=== PATIENT | female | born 1990 | race Caucasian/White ===

== ENCOUNTER 2016-12-10 10:30 | Inpatient (IN) | payer OTHER ==
[2016-12-10] MEDS ORDERED: CARBOPROST TROMETHAMINE 250 MCG/ML 1 ML AMP IM PRN (10:38)
[2016-12-10] MEDS ORDERED: TERBUTALINE 1 MG/ML VIAL SQ PRN (10:38)
[2016-12-10] MEDS ORDERED: LIDOCAINE 1% (PF) 10 MG/ML (30 ML SDV) SQ PRN (10:38)
[2016-12-10] MEDS ORDERED: METHYLERGONOVINE 0.2 MG/ML 1 ML AMP IM PRN (10:38)
[2016-12-10] MEDS ORDERED: OXYTOCIN 10 UNIT/ML 1 ML VIAL IM PRN (10:38)
[2016-12-10] MEDS ORDERED: OXYTOCIN 30 UNITS/500 ML NS 30 UNIT in SALINE 1 500ML.BAG IV SCH (10:45)
[2016-12-10 11:05] VITALS: BMI 49.5
[2016-12-10] MEDS: LACTATED RINGERS 1,000 ML IV SCH ×2 (11:11→18:10)
--- NOTE | 2016-12-10 11:36 | P.HPOB ---
History of Present Illness H&P Date: 12/10/16 Chief Complaint: Hypertension in This is a 26-year-old female 1 para 0 with an estimated date of confinement of 12/30/2016, estimated gestational age of 37 and one sevenths weeks, who presented to labor and delivery after being seen in the office today for routine visit. Her blood pressure in the office was 140/98. Her blood pressures have been elevated since approximately 35 weeks and she was placed on modified bed rest at that time. She has been getting twice weekly NSTs and her blood pressures have been in the 140s over 90s range. She denies any headaches or blurry vision. She has been experiencing some swelling in her lower extremities. Urine protein has been negative up until today. Today she showed trace protein in the urinalysis in the office. Since she is now beyond 37 weeks, the decision is made to proceed with delivery due to gestational hypertension over 37 weeks per ACOG guidelines. Labs will be drawn to rule out preeclampsia. She has had some isolated elevated blood pressures earlier on in the around 17 weeks that did resolve and she had been checking blood pressures at home regularly with normal findings. labs: GC/Chlamydia-negative Toxoplasma screen-within normal limits Syphilis antibody-negative nonreactive HIV-nonreactive Random glucose-91 Hepatitis B surface antigen-negative Hemoglobin-13.1 Rubella-immune Blood type-O+ Antibody screen-negative One hour Glucola-156 Three-hour Glucola-within normal limits Group B streptococcus-negative Obstetrical history: First Gynecologic history: No history of sexual transmitted diseases Social history: She is single. Boyfriend is involved. Review of Systems Eyes: denies blurred vision Gastrointestinal: Denies abdominal pain Genitourinary: Reports pelvic pain, Reports Musculoskeletal: bilateral: foot swelling Neurological: Denies headaches Past Medical History Additional Past Medical History / Comment(s): states had echo in september and has "a leaking heart valve" History of Any Multi-Drug Resistant Organisms: None Reported Past Surgical History: Adenoidectomy, Tonsillectomy Past Anesthesia/Blood Transfusion Reactions: No Reported Reaction Past Psychological History: Anxiety, Depression Smoking Status: Former smoker Past Drug Use History: None Reported - Past Family History Mother Family Medical History: Diabetes Mellitus, Hypertension Medications and Allergies Allergies Allergy/AdvReac Type Severity Reaction Status Date / Time Penicillins AdvReac Rash/Hives Verified 12/10/16 10:37 Exam Osteopathic Statement: *. No significant issues noted on an osteopathic structural exam other than those noted in the History and Physical/Consult. - Vital Signs Vital signs: Vital Signs Temp Pulse Resp BP 12/10/16 10:36 98 F 115 H 18 146/94 Intake and Output 12/09/16 12/10/16 12/10/16 22:59 06:59 14:59 Other: Weight 122.924 kg Patient Weight 12/11/16 06:59 Weight 122.924 kg HEENT: Within normal limits Heart: Regular rate and rhythm Lungs: Clear to auscultation bilaterally Abdomen: with fundal height of 38-1/2 cm heart tones: Reactive Contractions: Irregular, irritability pattern Extremities: Trace edema. Deep tendon reflexes 2 over 4 bilaterally. Assessment and Plan (1) Gestational hypertension affecting first Status: Acute (2) 37 weeks gestation of Status: Acute Plan: Plan is to proceed with oxytocin induction of labor and expectant management. Will monitor blood pressures closely. Will obtain preeclampsia labs.
[2016-12-10 11:45] LABS: Basophils # (A) 0.1 k/uL (0-0.2); Basophils % (A) 0 %; CH 29.3; CHCM 32.9; Eosinophils # (A) 0.1 k/uL (0-0.7); Eosinophils % (A) 1 %; HDW 2.78; HGB 12.2 gm/dL (11.4-16.0); Luc # (Auto) 0.29; Luc % (Auto) 2; Lymphocytes % (A) 13 %; MCH 28.8 pg (25.0-35.0); MCHC 32.2 g/dL (31.0-37.0); MCV 89.5 fL (80.0-100.0); Mean Platelet Volume 7.3; Monocytes # (A) 0.8 k/uL (0-1.0); Monocytes % (A) 5 %; Neutrophils # (A) 11.7 k/uL (1.3-7.7); Neutrophils % (A) 78 %; RBC 4.24 m/uL (3.80-5.40); RDW 15.4 % (11.5-15.5); WBC 14.9 k/uL (3.8-10.6)
[2016-12-10 12:00] LABS: ALT 30 U/L (9-52); AST 16 U/L (14-36); Blood Urea Nitrogen 8 mg/dL (7-17); LDH 400 U/L (313-618); Non-African American GFR(MDRD) >60 (>60 ml/min/1.73 sqM); Uric Acid 5.6 mg/dL (3.7-7.4)
[2016-12-10 12:27] LABS: INR 0.9 (<1.1); Partial Thromboplastin Time 22.9 sec (22.0-30.0); Prothrombin Time 9.5 sec (9.0-12.0)
[2016-12-11] MEDS: LACTATED RINGERS 1,000 ML IV SCH (01:39)
[2016-12-11] MEDS ORDERED: WITCH HAZEL 1 EACH MED..PAD TOPICAL PRN (03:22)
[2016-12-11] MEDS ORDERED: Acetaminophen-Codeine 300-30mg TAB PO PRN ×2 (03:22)
[2016-12-11] MEDS ORDERED: HYDROCORTISONE 2.5% RECTAL CREAM 30 GM TUBE RECTAL PRN (03:22)
[2016-12-11] MEDS ORDERED: SIMETHICONE 80 MG CHEWABLE PO PRN (03:22)
[2016-12-11] MEDS ORDERED: ACETAMINOPHEN TAB 325 MG TAB PO PRN (03:22)
[2016-12-11] MEDS ORDERED: BENZOCAINE/MENTHOL SPRAY 1 GM/SPRAY AEROSOL TOPICAL PRN (03:22)
[2016-12-11] MEDS ORDERED: diphenhydrAMINE 50 MG/ML 1 ML VIAL IVP PRN ×2 (03:22)
[2016-12-11] MEDS ORDERED: diphenhydrAMINE 25 MG CAP PO PRN (03:22)
[2016-12-11] MEDS ORDERED: diphenhydrAMINE 50 MG CAP PO PRN (03:22)
[2016-12-11] MEDS ORDERED: LANOLIN CREAM 5 GM TUBE TOPICAL PRN (03:22)
[2016-12-11] MEDS ORDERED: ZOLPIDEM 5 MG TAB PO PRN (03:22)
--- NOTE | 2016-12-11 03:26 | P.PROBDLV ---
Vaginal Delivery Note - . Vaginal Delivery Note: 26-year-old presents at 37 weeks and 1 day to the office with elevated blood pressures. She was sent over to the delivery for induction of labor due to gestational hypertension. Her cervix was 3 cm dilated, 70% effaced, and -3 station. She is not rafa. heart tones 135-140 with moderate variability and reactive. Amniotomy was performed 11:22 AM, clear fluid noted. Pitocin was also started. She progressed slowly throughout the day and night. Her cervix was completely dilated at 2:56 AM on 12/11/2016. She pushed , and delivered a viable male infant over intact perineum at 3:04 AM. Head delivered OA, nuchal cord 1 easily reduced, anterior shoulder delivered gentle downward traction followed by posterior shoulder and rest of body. Nose mouth bulb suctioned, cord clamped and cut, infant placed mother's abdomen. Apgars 8 , 9, weight 7 lbs. 4 oz. Placenta delivered spontaneously, intact with three- vessel cord at 3:08 AM. Vagina, cervix, and perineum were inspected. First- degree midline laceration was repaired with 3-0 Vicryl. Estimated blood loss 200 mL. Mother and baby in stable condition.
[2016-12-11] MEDS ORDERED: OXYTOCIN 30 UNITS/500 ML NS 30 UNIT in SALINE 1 500ML.BAG IV SCH (03:30)
[2016-12-11] MEDS: IBUPROFEN 600 MG TAB PO PRN ×2 (04:05→10:07)
[2016-12-11] MEDS ORDERED: SENNOSIDES-DOCUSATE SODIUM 1 EACH TAB PO SCH (08:00)
[2016-12-11 09:48] VITALS: RESP 19
--- NOTE | 2016-12-11 10:22 | P.DS ---
Providers Date of admission: 12/10/16 10:30 Expected date of discharge: 12/11/16 Attending physician: Caitie Villalba - Discharge Diagnosis(es) (1) Gestational hypertension affecting first Current Visit: Yes Status: Acute (2) 37 weeks gestation of Current Visit: Yes Status: Acute Hospital Course: This is a 26-year-old female 1 para 0 at 37 and one sevenths weeks who presented to the hospital with elevated blood pressures in the office. Per ACOG guidelines, she was sent to the hospital for delivery since she was beyond 37 weeks with persistent elevated blood pressures. She was given oxytocin induction of labor and artificial rupture membranes with clear fluid noted and did deliver vaginally a viable male infant on 12/11/2016 with scores of 8 at 1 minute and 9 at 5 minutes and infant weight of 7 lbs. 4 oz. with nuchal cord 1. She has done well . She still is running blood pressures in the 130s to 140s over 90s. Pain is well-controlled with ibuprofen. Lochia is decreasing. Baby however did go to special care nursery and is having some respiratory distress. The baby will need to be transported [facility] and therefore the patient is requesting discharge at this time. She does have a blood pressure cuff at home and will continue to check her blood pressures 2-3 times a day. She is advised to call the office if her blood pressures are elevated above 160/100-110. She will follow up in the office in approximately 1 week for a postop check. She will be given a prescription for ibuprofen 600 mg every 6 hours as needed for pain. She will also be given a prescription for a breast pump. She is advised to call the office if she has any further questions or concerns or needs any other prescriptions prior to her appointment time. Routine instructions are given. Procedures: Oxytocin induction of labor Spontaneous vaginal delivery of a viable male on 12/11/2016 Patient Condition at Discharge: Stable Plan - Discharge Summary New Discharge Prescriptions: Ibuprofen [Motrin] 600 mg PO Q6HR PRN #60 tab PRN Reason: Mild Pain Or Fever >= 100.5 Discharge Medication List Ibuprofen [Motrin] 600 mg PO Q6HR PRN #60 tab 12/11/16 [Rx] Follow up Appointment(s)/Referral(s): Caitie Villalba DO [Doctor of Osteopathic Medicine] - 1 Week Activity/Diet/Wound Care/Special Instructions: Instructions 1. Do not begin any exercise program for 3 weeks. 2. Do not resume sexual relations for 3 weeks or longer if uncomfortable. 3. You may take tub baths or showers at any time. 4. You may use tampons if desired after 3 weeks. 5. Keep the area of episiotomy (stitches) clean and dry. 6. If you are not nursing, wear a good fitting, supportive bra during the day and limit fluid intake for at least 1 week to prevent breast engorgement. 7. Call the office, [phone], within the next week to make appointment for your 6 week checkup if it has not already been made. 8. Report any of the following occurrences to the doctor promptly: a. Heavy, excessive bleeding b. Chills, fever c. Burning or frequency of urination d. Pain or redness and breasts if nursing e. Increasing pain or swelling in episiotomy (stitches). In addition to the above instructions, the following additional should be followed: 1. No heavy lifting or straining (exercising) until after 6 week checkup. 2. Keep abdominal incision clean and dry: You may wear a dressing if more comfortable. 3. Make office appointment for 10 days after going home or as instructed by her doctor. Discharge Disposition: HOME SELF-CARE
[2016-12-11 13:03] VITALS: PULSE 103; TEMP 98.5
[2016-12-11 13:45] VITALS: BP 145/93
== END 2016-12-11 13:10 | disposition home or self-care (01) | DRG 775 ==
LOC: 4FBP 10:30
PROVIDERS: ADMIT Obstetrics & Gynecology; ATTEND Obstetrics & Gynecology
PROC: 10E0XZZ Delivery of Products of Conception, External Approach (ICD-10-PCS; principal; 2016-12-11)
PROC: 10907ZC Drainage of Amniotic Fluid, Therapeutic from Products of Conception, Via Natural or Artificial Opening (ICD-10-PCS; 2016-12-11)
PROC: 0HQ9XZZ Repair Perineum Skin, External Approach (ICD-10-PCS; 2016-12-11)
PROC: 3E033VJ Introduction of Other Hormone into Peripheral Vein, Percutaneous Approach (ICD-10-PCS; 2016-12-11)
DX: O13.4 Gestational [pregnancy-induced] hypertension without significant proteinuria, complicating childbirth (principal); O99.344 Other mental disorders complicating childbirth; F32.9 Major depressive disorder, single episode, unspecified; F41.9 Anxiety disorder, unspecified; O69.81X0 Labor and delivery complicated by cord around neck, without compression, not applicable or unspecified; O70.0 First degree perineal laceration during delivery; Z3A.37 37 weeks gestation of pregnancy; Z37.0 Single live birth; Z87.891 Personal history of nicotine dependence; Z83.3 Family history of diabetes mellitus; Z82.49 Family history of ischemic heart disease and other diseases of the circulatory system; Z88.0 Allergy status to penicillin; Z86.79 Personal history of other diseases of the circulatory system
CPT/HCPCS: 82565; 83615; 84450; 84460; 84520; 84550; 85025; 85610; 85730; 88307

== ENCOUNTER → 2017-09-20 | Outpatient (CLI) | payer OTHER ==
--- NOTE | 2017-09-20 23:17 | MR ---
EXAMINATION TYPE: MR brain and iac wo/w con DATE OF EXAM: 09/20/2017 COMPARISON: NONE HISTORY: Dizziness and Giddiness per order. TECHNIQUE: Multiplanar, multisequence images of the brain and brainstem including internal auditory canal are al l performed without and with IV contrast, utilizing 13.5 mL intravenous Gadavist . FINDINGS: Diffusion weighted images demonstrate no evidence of a recent infarct or other diffusion ab normality. There is no extra-axial fluid collection or significant white matter signal abnormality. The ventricular system and cisternal spaces are normal in size and appearance. The brain volume is age appropriate. Midline structures demonstrate slightly low-lying cerebellar tonsils. No greater than 5 mm inferior descent is present. The craniocervical junction appears within normal limits. Post contrast images d emonstrate no abnormal enhancement. The dural venous sinuses appear patent. There is 2.0 cm polyp in the anterior inferior aspect of left maxillary sinus otherwise paranasal sinuses are clear. The globe s are intact bilaterally. No suspicious fluid signal is seen in mastoid air cells bilaterally. The vestibulocochlear complexes are symmetric and unremarkable. No suspicious enhancing cerebellopontine angle mass is identified bi laterally. IMPRESSION: No significant finding is seen to account for patient's symptoms.
== END | disposition home or self-care (01) ==
LOC: RADMRIMAIN 20:42
PROVIDERS: ATTEND Otolaryngology Otolaryngic Allergy
DX: R42 Dizziness and giddiness (principal)
CPT/HCPCS: 70553; A9581

== ENCOUNTER 2018-05-14 20:03 | Emergency (ER) | payer OTHER ==
[2018-05-14 20:32] VITALS: RESP 16; TEMP 98.5
--- NOTE | 2018-05-14 20:58 | ED ---
General Adult HPI - General Chief complaint: Extremity Injury, Lower Stated complaint: Knee pain Time Seen by Provider: 05/14/18 20:38 Source: patient, RN notes reviewed Mode of arrival: ambulatory Limitations: no limitations - History of Present Illness Initial comments: Patient 27-year-old female presented to the emergency room today with a chief complaint of pain to the right knee. She does admit that she's follow-up the family doctor had x-rays obtained was told that it could be a ligament problem. She states she has been using a knee brace but knee has been giving out on her. Patient states she's been working the last few days believes that this may have caused increased problems. There is no specific injury or trauma. States her 's more swelling. Patient states been using ibuprofen 800 mg. 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 She'll be able to do so due to pain. Does plan to follow-up with orthopedics. Patient denies any recent fever, chills, shortness of breath, chest pain, back pain, abdominal pain, nausea or vomiting, numbness or tingling, headaches or visual changes, or any other complaints. - Related Data Previous Rx's Medication Instructions Recorded Ibuprofen [Motrin] 600 mg PO Q6HR PRN #60 tab 12/11/16 Allergies Allergy/AdvReac Type Severity Reaction Status Date / Time Penicillins AdvReac Rash/Hives Verified 05/14/18 20:32 Review of Systems ROS Statement: Those systems with pertinent positive or pertinent negative responses have been documented in the HPI. ROS Other: All systems not noted in ROS Statement are negative. Past Medical History Additional Past Medical History / Comment(s): states had echo in september and has "a leaking heart valve" History of Any Multi-Drug Resistant Organisms: None Reported Past Surgical History: Adenoidectomy, Tonsillectomy Past Anesthesia/Blood Transfusion Reactions: No Reported Reaction Past Psychological History: Anxiety, Depression Smoking Status: Former smoker Past Drug Use History: None Reported - Past Family History Mother Family Medical History: Diabetes Mellitus, Hypertension General Exam - General Exam Comments Initial Comments: General: The patient is awake and alert, in no distress, and does not appear acutely ill. Neck: The neck is supple, there is no tenderness or JVD. Cardiovascular: There is a regular rate and rhythm. No murmur, rub or gallop is appreciated. Respiratory: Lungs are clear to auscultation, respirations are non-labored, breath sounds are equal. No wheezes, stridor, rales, or rhonchi. Musculoskeletal: Normal appearance the right knee no obvious deformity. Shows good range of motion with both flexion and extension. Sensations intact. Pedal pulse 2+. Strength is 5/5. Negative valgus varus stress. No bony tenderness on exam. Negative Neville's. Neurological: A&O x 3. CN II-XII intact, There are no obvious motor or sensory deficits. Coordination appears grossly intact. Speech is normal. Skin: Skin is warm and dry and no rashes or lesions are noted. Psychiatric: Normal mood and affect. Limitations: no limitations Course Vital Signs 05/14/18 20:30 Temperature 98.5 F Pulse Rate 93 Respiratory 16 Rate Blood Pressure 163/120 O2 Sat by Pulse 100 Oximetry Medical Decision Making - Medical Decision Making Patient's had x-rays within the last week and a half. There is no new injury or trauma. She states that gave out on her occasionally and she feels that there is been more swollen after working all day yesterday. Did offer options of x-rays that she's had these recently. At this time declined any repeat x- rays. Advised to follow-up with orthopedics. We'll refer to or so on-call. She does have a knee brace at home that she's been using. She has been taking anti-inflammatories. Patient given a work no further work and advised follow- up with orthopedics Disposition Clinical Impression: Knee pain Disposition: HOME SELF-CARE Condition: Good Instructions: Knee Pain (ED) Additional Instructions: Please follow-up with orthopedics as discussed. Please use knee brace when up and moving around. Please continue to ice elevate the affected area. Please continue prescription prescribed anti-inflammatories for pain. Please return to emergency room for any other concerns. Is patient prescribed a controlled substance at d/c from ED?: No Referrals: Davon Garcia III, MD [Primary Care Provider] - 1-2 days Cesar Palma MD [STAFF PHYSICIAN] - 1-2 days Time of Disposition: 21:00
[2018-05-14 21:03] VITALS: BP 167/104; PULSE 86
== END 2018-05-14 21:18 | disposition home or self-care (01) ==
LOC: EC 20:03
DX: M25.561 Pain in right knee (principal); Z87.891 Personal history of nicotine dependence; Z88.0 Allergy status to penicillin
CPT/HCPCS: 99283

== ENCOUNTER 2020-04-23 10:26 | Inpatient (IN) | payer OTHER ==
[2020-04-23] MEDS ORDERED: IBUPROFEN 600 MG TAB PO STA (10:57)
[2020-04-23] MEDS ORDERED: SODIUM CHLORIDE 0.9% 1,000 ML IV ONE (10:58)
[2020-04-23] MEDS ORDERED: VANCOMYCIN IV PER PHARMACY 1 EACH MISC MISCELLANE PRN (10:58)
[2020-04-23] MEDS ORDERED: cefTRIAXone IN SWFI 1,000 MG/10 ML SYRINGE IVP STA (10:59)
--- NOTE | 2020-04-23 11:00 | ED ---
General Adult HPI - General Chief complaint: Skin/Abscess/Foreign Body Stated complaint: abscess on leg Time Seen by Provider: 04/23/20 10:35 Source: patient, RN notes reviewed, old records reviewed Mode of arrival: ambulatory Limitations: no limitations - History of Present Illness Initial comments: Patient is a 29-year-old female presents emergency times a day for failed outpatient treatment over an abscess and cellulitis over her right inner thigh. Patient reports that she had an abscess drained by her primary care physician on Wednesday. She is placed on Bactrim has been taking this antibiotic for the past 4 days. One pill twice a day. Patient states that he's had fevers max of 99.9. Patient states that she has noticed some increased drainage from the site and increased erythema around the skin. Patient reports that she called her primary care physician whom sent her here for further evaluation. She is a nondiabetic. Denies any history of resistant skin infections. She does report that the culture has not been resulted from her initial incision and drainage at the doctor's office on Wednesday. - Related Data Home Medications Medication Instructions Recorded Confirmed Ergocalciferol [Vitamin D2 50,000 units PO Q7D 04/23/20 04/23/20 (DRISDOL)] Norgestimate-Ethinyl Estradiol 1 tab PO HS 04/23/20 04/23/20 [Mononessa 28 Tablet] Sertraline HCl [Zoloft] 100 mg PO HS 04/23/20 04/23/20 Sulfamethox-Tmp 800-160Mg [Bactrim 1 tab PO Q12HR 04/23/20 04/23/20 DS 800-160 mg] busPIRone HCL [Buspar] 7.5 mg PO HS 04/23/20 04/23/20 Allergies Allergy/AdvReac Type Severity Reaction Status Date / Time Penicillins AdvReac Rash/Hives Verified 04/23/20 10:33 Review of Systems ROS Statement: Those systems with pertinent positive or pertinent negative responses have been documented in the HPI. ROS Other: All systems not noted in ROS Statement are negative. Past Medical History Additional Past Medical History / Comment(s): states had echo in september and has "a leaking heart valve" History of Any Multi-Drug Resistant Organisms: None Reported Past Surgical History: Adenoidectomy, Tonsillectomy Past Anesthesia/Blood Transfusion Reactions: No Reported Reaction Past Psychological History: Anxiety, Depression Smoking Status: Former smoker Past Alcohol Use History: Occasional Past Drug Use History: None Reported - Past Family History Mother Family Medical History: Diabetes Mellitus, Hypertension General Exam - General Exam Comments Initial Comments: 29-year-old female. Oriented 3. Patient is somewhat anxious. Morbidly obese. Limitations: no limitations General appearance: alert, in no apparent distress, anxious Head exam: Present: atraumatic Eye exam: Present: normal appearance, PERRL, EOMI. Absent: scleral icterus, conjunctival injection, periorbital swelling ENT exam: Present: normal exam, mucous membranes moist Neck exam: Present: normal inspection. Absent: tenderness, meningismus, lymphadenopathy Respiratory exam: Present: normal lung sounds bilaterally. Absent: respiratory distress, wheezes, rales, rhonchi, stridor Cardiovascular Exam: Present: regular rate, normal rhythm, normal heart sounds. Absent: systolic murmur, diastolic murmur, rubs, gallop, clicks GI/Abdominal exam: Present: soft, normal bowel sounds. Absent: distended, tenderness, guarding, rebound, rigid Extremities exam: Present: full ROM, normal capillary refill, other (Patient has area of cellulitis over the right inner thigh measuring about 10 cm x 10 cm. There is area of fluctuance that is open and has active purulent bloody drainage.). Absent: normal inspection, tenderness, pedal edema, joint swelling, calf tenderness Back exam: Present: normal inspection Neurological exam: Present: alert, oriented X3, CN II-XII intact Psychiatric exam: Present: normal affect, normal mood Skin exam: Present: warm, dry, intact, normal color. Absent: rash Course Vital Signs 04/23/20 04/23/20 04/23/20 10:30 10:32 11:32 Temperature 98.9 F Pulse Rate 120 H 92 Respiratory 18 18 18 Rate Blood Pressure 156/93 135/89 O2 Sat by Pulse 100 98 Oximetry Medical Decision Making - Medical Decision Making 29-year-old female a failed outpatient treatment for right inner thigh abscess and cellulitis. This was incised and drained on Wednesday and she is taking Bactrim for the past 4 days. She has a area of cellulitis induration and firmness. It is continually actively draining with purulent and bloody fluid from the abscess site. Culture was obtained. Patient was given IV fluids, started on Rocephin and levaquin due to history of penicillin ALLERGY as well as started on vancomycin. Patient's initial culture from doctor's office is pending. Patient's CBC is unremarkable. Blood cultures were obtained today. We'll admit the Patient at this time with IV Levaquin and vancomycin. Patient states is discussed with Dr. Stock who discussed case with [facility] hosp italist. - Lab Data Result diagrams: 04/23/20 11:15 Lab Results 04/23/20 04/23/20 Range/Units 11:15 11:15 WBC 9.7 (3.8-10.6) k/uL RBC 4.59 (3.80-5.40) m/uL Hgb 12.7 (11.4-16.0) gm/dL Hct 39.2 (34.0-46.0) % MCV 85.5 (80.0-100.0) fL MCH 27.8 (25.0-35.0) pg MCHC 32.5 (31.0-37.0) g/dL RDW 14.1 (11.5-15.5) % Plt Count 374 (150-450) k/uL Neutrophils % 68 % Lymphocytes % 23 % Monocytes % 4 % Eosinophils % 3 % Basophils % 1 % Neutrophils # 6.6 (1.3-7.7) k/uL Lymphocytes # 2.3 (1.0-4.8) k/uL Monocytes # 0.4 (0-1.0) k/uL Eosinophils # 0.2 (0-0.7) k/uL Basophils # 0.1 (0-0.2) k/uL Hypochromasia Slight Plasma Lactic Acid Henrry 1.3 (0.7-2.0) mmol/L Disposition Clinical Impression: Abscess of right thigh, Cellulitis of thigh, Failure of outpatient treatment Disposition: ADMITTED IP TO THIS HOSP Condition: Stable Is patient prescribed a controlled substance at d/c from ED?: No Referrals: Davon Garcia III, MD [Primary Care Provider] - 1-2 days Time of Disposition: 12:05
[2020-04-23] MEDS: SODIUM CHLORIDE 0.9% 1,000 ML IV SCH ×2 (11:31→21:28)
[2020-04-23 11:37] LABS: Basophils # (A) 0.1 k/uL (0-0.2); Basophils % (A) 1 %; Eosinophils # (A) 0.2 k/uL (0-0.7); Eosinophils % (A) 3 %; HCT 39.2 % (34.0-46.0); HGB 12.7 gm/dL (11.4-16.0); Hypochromasia Slight; Lymphocytes # (A) 2.3 k/uL (1.0-4.8); Lymphocytes % (A) 23 %; MCH 27.8 pg (25.0-35.0); MCHC 32.5 g/dL (31.0-37.0); MCV 85.5 fL (80.0-100.0); Mean Platelet Volume 6.6; Monocytes # (A) 0.4 k/uL (0-1.0); Monocytes % (A) 4 %; Neutrophils # (A) 6.6 k/uL (1.3-7.7); Neutrophils % (A) 68 %; Platelet Count 374 k/uL (150-450); RBC 4.59 m/uL (3.80-5.40); RDW 14.1 % (11.5-15.5); WBC 9.7 k/uL (3.8-10.6)
[2020-04-23 11:50] LABS: ALT 31 U/L (4-34); AST 30 U/L (14-36); African American GFR (CKD) >90 (>60 ml/min/1.73 sqM); Albumin 4.2 g/dL (3.5-5.0); Alkaline Phosphatase 96 U/L (38-126); Anion Gap 9 mmol/L; Blood Urea Nitrogen 15 mg/dL (7-17); Calcium 9.3 mg/dL (8.4-10.2); Carbon Dioxide 21 mmol/L (22-30); Chloride 106 mmol/L (98-107); Glucose 94 mg/dL (74-99); Non-African American GFR(CKD) 85 (>60 ml/min/1.73 sqM); Sodium 136 mmol/L (137-145); Total Bilirubin 0.5 mg/dL (0.2-1.3); Total Protein 7.6 g/dL (6.3-8.2)
[2020-04-23 12:05] LABS: Potassium 4.9 mmol/L (3.5-5.1)
[2020-04-23] MEDS ORDERED: KETOROLAC 30 MG/ML 1 ML VIAL IVP PRN (12:06)
[2020-04-23] MEDS ORDERED: NALOXONE 0.4 MG/ML 1 ML VIAL IV PRN (12:06)
[2020-04-23] MEDS ORDERED: ONDANSETRON 4 MG/2 ML VIAL IVP PRN (12:06)
[2020-04-23] MEDS ORDERED: MORPHINE SULFATE 4 MG/ML SYRINGE IV PRN (12:06)
[2020-04-23] MEDS ORDERED: LEVOFLOXACIN 750MG-D5W PMX 750 MG in DEXTROSE/WATER 1 150ML.BAG IVPB ONE (12:45)
[2020-04-23] MEDS ORDERED: VANCOMYCIN 2,500 MG in SODIUM CHLORIDE 0.9% 500 ML 500 ML IVPB ONE (13:00)
--- NOTE | 2020-04-23 14:25 | P.HPIM ---
History of Present Illness H&P Date: 04/23/20 Chief Complaint: right thigh abscess patient is a 29-year-old female with known history of hypothyroidism, previous smoking came to ER with complaints of worsening redness and swelling and abscess over her right inner thigh. Patient says that she developed abscess on Wednesday after she had a long travel in the car. Patient was seen by her primary care physician on Wednesday and was drained in the office. Patient was placed on Bactrim which she has been taking for the past 4 days but swelling did not improve much. Patient has been having fevers at home. Patient noticed some increased drainage and increased redness in the surrounding area. Call her primary care physician who recommended to go to ER. Denied any previous history of MRSA. Culture report is not available from her PCPs office at this time. patient was tachycardic on admission. No fever no chills. Denied any chest pain or shortness of breath. no leg swelling. no headache or dizziness or lightheadedness. Laboratory data reviewed. No leukocytosis noted. Review of Systems Constitutional: Patient denies any fever or chills . No generalized weakness or weight loss. Abdomen: Patient denied nausea vomiting and diarrhea and abdominal pain. Cardiovascular: Patient denies any chest pain or short of breath no palpitations. Respiratory: patient denied any cough is from production. No shortness of breath Neurologic: Patient denied any numbness or tingling headache. Musculoskeletal: Patient denies any complaints of joint swelling or deformity. Skin: abscess in the inner thigh and purulent drainage. Psychiatric: Negative Endocrine: No heat or cold intolerance. No recent weight gain. Genitourinary: No dysuria or hematuria. All other 14 point ROS negative except the above Past Medical History Additional Past Medical History / Comment(s): Murmur heard during , hypothyroid, decreased energy level. History of Any Multi-Drug Resistant Organisms: None Reported Past Surgical History: Adenoidectomy, Tonsillectomy Past Anesthesia/Blood Transfusion Reactions: No Reported Reaction, Motion Sickness Smoking Status: Former smoker - Past Family History Mother Family Medical History: Diabetes Mellitus, Hypertension Father Additional Family Medical History / Comment(s): Pt states father was either having a [place] or a CVA, in a MVA when he tried to drive himself to the hospital. He was 63 yrs old. Medications and Allergies Home Medications Medication Instructions Recorded Confirmed Type Ergocalciferol [Vitamin D2 50,000 units PO Q7D 04/23/20 04/23/20 History (DRISDOL)] Norgestimate-Ethinyl Estradiol 1 tab PO HS 04/23/20 04/23/20 History [Mononessa 28 Tablet] Sertraline HCl [Zoloft] 100 mg PO HS 04/23/20 04/23/20 History Sulfamethox-Tmp 800-160Mg [Bactrim 1 tab PO Q12HR 04/23/20 04/23/20 History DS 800-160 mg] busPIRone HCL [Buspar] 7.5 mg PO HS 04/23/20 04/23/20 History Allergies Allergy/AdvReac Type Severity Reaction Status Date / Time Penicillins AdvReac Rash/Hives Verified 04/23/20 10:33 Physical Exam Vitals: Vital Signs Temp Pulse Resp BP Pulse Ox 04/23/20 13:03 92 18 135/89 98 04/23/20 13:00 18 98 04/23/20 12:00 92 18 98 04/23/20 11:32 92 18 135/89 98 04/23/20 10:32 18 04/23/20 10:30 98.9 F 120 H 18 156/93 100 Intake and Output 04/22/20 04/23/20 04/23/20 22:59 06:59 14:59 Intake Total 220 Balance 220 Intake: Oral 220 Other: Weight 136.7 kg PHYSICAL EXAMINATION: Patient is lying in the bed comfortably, no acute distress, awake alert and oriented.. HEENT: Normocephalic. Neck is supple. Pupils reactive. Nostrils clear. Oral cavity is moist. Ears reveal no drainage. Neck reveals no JVD, carotid bruits, or thyromegaly. CHEST EXAMINATION: Trachea is central. Symmetrical expansion. Lung dee clear to auscultation and percussion. CARDIAC: Normal S1, S2 with no gallops. No murmurs ABDOMEN: Soft. Bowel sounds normal. No organomegaly. No abdominal bruits. right upperinner thighabscess with purulent drainage and surrounding redness, swelling and induration. Moderate tenderness. Extremities: reveal no edema. No clubbing or cyanosis Neurologically awake, alert, oriented x3 with well-coordinated movements. No focal deficits noted Skin: No rash or skin lesions. Psychiatric: Coperative. Nonsuicidal Musculoskeletal: No joint swelling or deformity. Normal range of motion. Results CBC & Chem 7: 04/23/20 11:15 04/23/20 11:15 Labs: Abnormal Lab Results - Last 24 Hours (Table) 04/23/20 Range/Units 11:15 Sodium 136 L (137-145) mmol/L Carbon Dioxide 21 L (22-30) mmol/L Thrombosis Risk Factor Assmnt - DVT/VTE Prophylaxis DVT/VTE Prophylaxis: Pharmacologic Prophylaxis ordered - Choose All That Apply Any of the Below Risk Factors Present?: Yes Each Factor Represents 1 point: Obesity (BMI >25), Oral contraceptives or hormone replacement therapy Other Risk Factors: Yes Other congenital or acquired thrombophilia - If yes, enter type in comment: No Thrombosis Risk Factor Assessment Total Risk Factor Score: 2 Thrombosis Risk Factor Assessment Level: Low Risk Assessment and Plan Assessment: right inner thigh abscess with surrounding cellulitis.failed outpatient therapy with Bactrim. hypothyroidism History of smoking DVT prophylaxiswith early ambulation Morbid obesity with BMI 53.4 plan: Patient was started on vancomycin and Levaquin in the ER. Continue with antibiotics at this time and follow up closely. Patient is currently having purulent drainage from the abscess site.. Considergeneral surgery consultation in the swelling does not get better in the next 24 hours. Follow-up blood cultures and follow up culture reports from doctor's office. Further recommendations based on the clinical course. Time with Patient: Greater than 30
[2020-04-23] MEDS ORDERED: LEVOFLOXACIN 750MG-D5W PMX 750 MG in DEXTROSE/WATER 1 150ML.BAG IVPB SCH (15:30)
[2020-04-23] MEDS: IBUPROFEN 400 MG TAB PO PRN (21:28)
[2020-04-24] MEDS: VANCOMYCIN 2,250 MG in SODIUM CHLORIDE 0.9% 500 ML 500 ML IVPB SCH ×2 (01:13→13:59)
[2020-04-24] MEDS: ACETAMINOPHEN TAB 325 MG TAB PO PRN ×3 (02:25→15:33)
[2020-04-24] MEDS: SODIUM CHLORIDE 0.9% 1,000 ML IV SCH ×2 (05:47→18:24)
[2020-04-24] MEDS: IBUPROFEN 400 MG TAB PO PRN (05:48)
[2020-04-24] MEDS ORDERED: VANCOMYCIN 2,250 MG in SODIUM CHLORIDE 0.9% 500 ML 500 ML IVPB SCH (06:00)
[2020-04-24 07:25] LABS: T4, Free (Free Thyroxine) 0.85 ng/dL (0.78-2.19)
[2020-04-24] MEDS: PANTOPRAZOLE 40 MG/10 ML VIAL IV SCH (08:48)
[2020-04-24 15:24] VITALS: RESP 18
--- NOTE | 2020-04-25 01:04 | P.PN ---
Subjective Progress Note Date: 04/24/20 Principal diagnosis: Right inner thigh abscess patient is a 29-year-old female with known history of hypothyroidism, previous smoking came to ER with complaints of worsening redness and swelling and abscess over her right inner thigh. Patient says that she developed abscess on Wednesday after she had a long travel in the car. Patient was seen by her primary care physician on Wednesday and was drained in the office. Patient was placed on Bactrim which she has been taking for the past 4 days but swelling did not improve much. Patient has been having fevers at home. Patient noticed some increased drainage and increased redness in the surrounding area. Call her primary care physician who recommended to go to ER. Denied any previous history of MRSA. Culture report is not available from her PCPs office at this time. patient was tachycardic on admission. No fever no chills. Denied any chest pain or shortness of breath. no leg swelling. no headache or dizziness or lightheadedness. Laboratory data reviewed. No leukocytosis noted. 04/24/2020 Patient denied any complaints of chest pain or shortness of breath. Lying in the bed comfortably. Right thigh abscess is still having induration and some purulent discharge. Improving compared to yesterday. Patient has been afebrile. No leukocytosis. Patient is being continued on antibiotics in the form of vancomycin. Current medications reviewed. Objective - Vital Signs Vital signs: Vital Signs Temp 97.6 F 04/24/20 20:00 Pulse 79 04/24/20 20:00 Resp 18 04/24/20 20:00 BP 128/80 04/24/20 20:00 Pulse Ox 97 04/24/20 20:00 Intake & Output 04/24/20 04/24/20 04/25/20 06:59 18:59 06:59 Intake Total 2440 100 Balance 2440 100 Intake: Intake, IV Titration 2000 Amount Sodium Chloride 0.9% 1, 1000 000 ml @ 50 mls/hr IV . Q20H [facility] Rx#:[id number] Vancomycin 2,500 mg In 1000 Sodium Chloride 0.9% 500 ml 500 ml @ 167 mls/hr IVPB ONCE ONE Rx#: [id number] Oral 440 100 Other: # Voids 1 1 - Exam PHYSICAL EXAMINATION: Patient is lying in the bed comfortably, no acute distress, awake alert and oriented.. HEENT: Normocephalic. Neck is supple. Pupils reactive. Nostrils clear. Oral cavity is moist. Ears reveal no drainage. Neck reveals no JVD, carotid bruits, or thyromegaly. CHEST EXAMINATION: Trachea is central. Symmetrical expansion. Lung dee clear to auscultation and percussion. CARDIAC: Normal S1, S2 with no gallops. No murmurs ABDOMEN: Soft. Bowel sounds normal. No organomegaly. No abdominal bruits. right upperinner thighabscess with purulent drainage and surrounding redness, swelling and induration. Moderate tenderness. Extremities: reveal no edema. No clubbing or cyanosis Neurologically awake, alert, oriented x3 with well-coordinated movements. No focal deficits noted Skin: No rash or skin lesions. Psychiatric: Coperative. Nonsuicidal Musculoskeletal: No joint swelling or deformity. Normal range of motion. - Labs CBC & Chem 7: 04/23/20 11:15 04/23/20 11:15 Labs: Abnormal Lab Results - Last 24 Hours (Table) 04/24/20 Range/Units 05:51 TSH 13.100 H (0.465-4.680) mIU/L Microbiology - Last 24 Hours (Table) 04/23/20 11:15 Blood Culture - Preliminary Blood No Growth after 24 hours 04/23/20 11:15 Gram Stain - Preliminary Groin Wound Culture - Preliminary Assessment and Plan Assessment: right inner thigh abscess with surrounding cellulitis.failed outpatient therapy with Bactrim. hypothyroidism History of smoking DVT prophylaxiswith early ambulation Morbid obesity with BMI 53.4 plan: Patient was started on vancomycin and Levaquin in the ER. Continue with antibiotics In the form of vancomycin. Considergeneral surgery consultation in the swelling does not get better in the next 24 hours. Follow-up blood cultures and follow up culture reports from doctor's office. Further recommendations based on the clinical course. Time with Patient: Greater than 30
[2020-04-25] MEDS: VANCOMYCIN 2,250 MG in SODIUM CHLORIDE 0.9% 500 ML 500 ML IVPB SCH (01:50)
[2020-04-25 06:08] LABS: African American GFR (CKD) >90 (>60 ml/min/1.73 sqM); Anion Gap 3 mmol/L; Blood Urea Nitrogen 11 mg/dL (7-17); Calcium 8.4 mg/dL (8.4-10.2); Carbon Dioxide 24 mmol/L (22-30); Chloride 108 mmol/L (98-107); Glucose 98 mg/dL (74-99); Non-African American GFR(CKD) 85 (>60 ml/min/1.73 sqM); Potassium 4.4 mmol/L (3.5-5.1); Sodium 135 mmol/L (137-145)
[2020-04-25 09:11] VITALS: BP 135/82; PULSE 91; TEMP 98.1
[2020-04-25] MEDS: PANTOPRAZOLE 40 MG/10 ML VIAL IV SCH (09:11)
[2020-04-25] MEDS: SODIUM CHLORIDE 0.9% 1,000 ML IV SCH (09:13)
[2020-04-25] MEDS ORDERED: CEPHALEXIN 500 MG CAP PO SCH (11:15)
[2020-04-26] MEDS ORDERED: VANCOMYCIN TROUGH DUE 1 EACH MISC MISCELLANE ONE (13:00)
== END 2020-04-25 14:21 | disposition home or self-care (01) | DRG 603 ==
LOC: EC 10:26 → 6PED 12:47 → OBSVTOIN 04-25 08:47
PROVIDERS: ADMIT Hospitalist; ATTEND Hospitalist
DX: L02.415 Cutaneous abscess of right lower limb (principal); Z68.43 Body mass index [BMI] 50.0-59.9, adult; L03.115 Cellulitis of right lower limb; E03.9 Hypothyroidism, unspecified; E66.01 Morbid (severe) obesity due to excess calories; F32.9 Major depressive disorder, single episode, unspecified; F41.9 Anxiety disorder, unspecified; R01.1 Cardiac murmur, unspecified; Z11.59 Encounter for screening for other viral diseases; Z79.899 Other long term (current) drug therapy; Z88.0 Allergy status to penicillin; Z87.891 Personal history of nicotine dependence; Z83.3 Family history of diabetes mellitus; Z82.49 Family history of ischemic heart disease and other diseases of the circulatory system
CPT/HCPCS: 36415; 80048; 80053; 83605; 84439; 84443; 84703; 85025; 87040; 87070; 87205; 96361; 96374; 99284

== ENCOUNTER → 2023-01-27 | Outpatient (CLI) | payer OTHER ==
--- NOTE | 2023-01-27 15:06 | USB ---
Reason for Exam: Clinical finding. Findings: The whole breast of both breasts, the axilla of both breasts and the retroareolar of both breasts were scanned. No solid or cystic masses are identified.. Overall Assessment: Negative, BI-RAD 1 Management: Screening Mammogram of both breasts at age 39. A clinical breast exam by your physician is recommended on an annual basis and results should be correlated with mammographic findings. This exam should not preclude additional follow-up of suspicious palpable abnormalities. Results were given to the patient verbally at the time of exam. Electronically signed and approved by: Néstor Saldivar M.D. Radiologis
== END | disposition home or self-care (01) ==
LOC: RADUSWWP 14:14
PROVIDERS: ATTEND Family Medicine
DX: N60.02 Solitary cyst of left breast (principal)

== ENCOUNTER → 2023-06-21 | Outpatient (CLI) | payer OTHER ==
--- NOTE | 2023-06-21 19:58 | MR ---
EXAMINATION TYPE: MR brain/cspine wo DATE OF EXAM: 06/21/2023 7:11 PM COMPARISON: 09/20/17 prior more recent MR imaging not available at time of dictation. CLINICAL INDICATION:Female, 32 years old with history of G93.5 COMPRESSION OF BRAIN; PHH, Headaches, Dizziness, Chiari I malformation TECHNIQUE: Multi planar, multi sequence imaging was performed through the brain including: T1, T2, Inversion rec overy, Diffusion weighted imaging, and gradient echo imaging. No gadolinium was given. Multi planar, multi sequence imaging was performed utilizing: T1-weighted, T2-weighted, and turbo inv ersion recovery imaging of the cervical spine. IV Contrast: None FINDINGS: Cerebellar tonsils extend below the foramen magnum up to 3 mm. The varghese-white junctions, ventricular system, and cisterns appear unremarkable. Midline structures sh ow no abnormality. Diffusion-weighted imaging shows no evidence of restricted diffusion. The suscepti bility weighted images do not reveal any evidence for micro-hemorrhage. The bone marrow signal is within normal limits. Paranasal sinuses and mastoid air cells: Left maxillary sinus retention cyst measuring up to Visualized orbits: Orbital contents are intact. Alignment: The cervical vertebral bodies have preserved heights. Alignment is within normal limits gi rebecca patient positioning. Bones: Bone signal is within normal limits. Cord: The spinal cord is unremarkable with regards to their signal intensity and morphology. Discs: Multilevel disc desiccation is present. C2-C3: No significant disc pathology. The spinal canal is patent. No neural foraminal stenosis. C3-C4: No significant disc pathology. The spinal canal is patent. No neural foraminal stenosis. C4-C5: No significant disc pathology. The spinal canal is patent. No neural foraminal stenosis. C5-C6: No significant disc pathology. The spinal canal is patent. No neural foraminal stenosis. C6-C7: No significant disc pathology. The spinal canal is patent. No neural foraminal stenosis. C7-T1: No significant disc pathology. The spinal canal is patent. No neural foraminal stenosis. Other: None. IMPRESSION: 1. No evidence for disc herniation or significant spinal canal stenosis. 2. Mild disc degeneration with associated osteoarthritic changes. No significant spinal canal or aman ral foraminal stenosis. 3. No evidence of intracranial mass or acute/subacute infarct. 4. 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
== END | disposition home or self-care (01) ==
LOC: RADMRIMAIN 18:03
PROVIDERS: ATTEND Internal Medicine
DX: G93.5 Compression of brain (principal); M50.30 Other cervical disc degeneration, unspecified cervical region; M47.812 Spondylosis without myelopathy or radiculopathy, cervical region; Q04.8 Other specified congenital malformations of brain
CPT/HCPCS: 70551; 72141

== ENCOUNTER 2023-07-21 12:34 | Emergency (ER) | payer OTHER ==
--- NOTE | 2023-07-21 12:55 | ED ---
General Adult HPI - General Source: patient, RN notes reviewed Mode of arrival: ambulatory Limitations: no limitations <Mariusz Smith - Last Filed: 07/21/23 12:54> <Bharath Swanson - Last Filed: 07/21/23 21:55> - General Stated complaint: Abd pain Time Seen by Provider: 07/21/23 12:54 - History of Present Illness Initial comments: 32-year-old female presents emergency Department chief complaint of right-sided abdominal pain. Patient states pain to the right side of her abdomen. Patient states has been present last few days. Patient was seen at urgent care and sent over for evaluation of her gallbladder. (Mariusz Smith) - Related Data Home Medications Medication Instructions Recorded Confirmed Ergocalciferol [Vitamin D2 50,000 units PO Q7D 04/23/20 04/23/20 (DRISDOL)] Sertraline HCl [Zoloft] 100 mg PO HS 04/23/20 04/23/20 busPIRone HCL [Buspar] 7.5 mg PO HS 04/23/20 04/23/20 norgestimate-ethinyl estradioL 1 tab PO HS 04/23/20 04/23/20 [Mononessa 28 Tablet] Previous Rx's Medication Instructions Recorded Cephalexin [Keflex] 500 mg PO Q8HR 5 Days #15 cap 04/25/20 Allergies Allergy/AdvReac Type Severity Reaction Status Date / Time Penicillins AdvReac Intermediate Rash/Hives Verified 07/21/23 13:19 Review of Systems ROS Other: All systems not noted in ROS Statement are negative. <Mariusz Smith - Last Filed: 07/21/23 12:54> ROS Other: All systems not noted in ROS Statement are negative. <Bharath Swanson - Last Filed: 07/21/23 21:55> ROS Statement: Those systems with pertinent positive or pertinent negative responses have been documented in the HPI. Past Medical History Additional Past Medical History / Comment(s): Murmur heard during , hypothyroid, decreased energy level. History of Any Multi-Drug Resistant Organisms: None Reported Past Surgical History: Adenoidectomy, Tonsillectomy Past Anesthesia/Blood Transfusion Reactions: No Reported Reaction, Motion Sickness Past Psychological History: Anxiety, Depression Past Alcohol Use History: Occasional Past Drug Use History: None Reported - Past Family History Mother Family Medical History: Diabetes Mellitus, Hypertension Father Additional Family Medical History / Comment(s): Pt states father was either having a CT or a CVA, in a MVA when he tried to drive himself to the hospital. He was 63 yrs old. <Mariusz Smith - Last Filed: 07/21/23 12:54> General Exam <Mariusz Smith - Last Filed: 07/21/23 12:54> - General Exam Comments Initial Comments: Visual Physical Exam Vital signs reviewed General: Well-appearing, nontoxic, no acute distress. Head: Normocephalic, atraumatic Eyes: PERRLA, EOMI ENT: Airway patent Chest: Nonlabored breathing Skin: No visual rash, normal skin tone Neuro: Alert and oriented 3 Musculoskeletal: No gross abnormalities (Mariusz Smith) Course Vital Signs 07/21/23 13:16 Temperature 98.2 F Pulse Rate 103 H Respiratory 18 Rate Blood Pressure 166/110 O2 Sat by Pulse 99 Oximetry Medical Decision Making <Mariusz Smith - Last Filed: 07/21/23 12:54> - Lab Data Result diagrams: 07/21/23 13:58 07/21/23 13:58 <Bharath Swanson - Last Filed: 07/21/23 21:55> - Medical Decision Making I performed a quick note portion of this Chart signed Mariusz Smith PA-C (Mariusz Smith) - Lab Data Lab Results 07/21/23 07/21/23 07/21/23 Range/Units 13:20 13:20 13:58 WBC 10.2 (3.8-10.6) k/uL RBC 5.02 (3.80-5.40) m/uL Hgb 15.0 (11.4-16.0) gm/dL Hct 45.6 (34.0-46.0) % MCV 90.8 (80.0-100.0) fL MCH 29.9 (25.0-35.0) pg MCHC 32.9 (31.0-37.0) g/dL RDW 14.1 (11.5-15.5) % Plt Count 285 (150-450) k/uL MPV 7.5 Neutrophils % 75 % Lymphocytes % 20 % Monocytes % 4 % Eosinophils % 0 % Basophils % 0 % Neutrophils # 7.6 (1.3-7.7) k/uL Lymphocytes # 2.0 (1.0-4.8) k/uL Monocytes # 0.4 (0-1.0) k/uL Eosinophils # 0.0 (0-0.7) k/uL Basophils # 0.0 (0-0.2) k/uL Sodium (137-145) mmol/L Potassium (3.5-5.1) mmol/L Chloride (98-107) mmol/L Carbon Dioxide (22-30) mmol/L Anion Gap mmol/L BUN (7-17) mg/dL Creatinine (0.52-1.04) mg/dL Est GFR (CKD-EPI)AfAm (>60 ml/min/1.73 sqM) Est GFR (CKD-EPI)NonAf (>60 ml/min/1.73 sqM) Glucose (74-99) mg/dL Calcium (8.4-10.2) mg/dL Total Bilirubin (0.2-1.3) mg/dL AST (14-36) U/L ALT (4-34) U/L Alkaline Phosphatase (38-126) U/L Total Protein (6.3-8.2) g/dL Albumin (3.5-5.0) g/dL Lipase (23-300) U/L Urine Color Colorless Urine Appearance Clear (Clear) Urine pH 6.5 (5.0-8.0) Ur Specific Blaine 1.002 (1.001-1.035) Urine Protein Negative (Negative) Urine Glucose (UA) Negative (Negative) Urine Ketones Negative (Negative) Urine Blood Large H (Negative) Urine Nitrite Negative (Negative) Urine Bilirubin Negative (Negative) Urine Urobilinogen <2.0 (<2.0) mg/dL Ur Leukocyte Esterase Moderate H (Negative) Urine RBC 1 (0-5) /hpf Urine WBC 9 H (0-5) /hpf Ur Squamous Epith Cells <1 (0-4) /hpf Urine Bacteria Rare H (None) /hpf Urine HCG, Qual Not Detected (Not Detectd) 07/21/23 Range/Units 13:58 WBC (3.8-10.6) k/uL RBC (3.80-5.40) m/uL Hgb (11.4-16.0) gm/dL Hct (34.0-46.0) % MCV (80.0-100.0) fL MCH (25.0-35.0) pg MCHC (31.0-37.0) g/dL RDW (11.5-15.5) % Plt Count (150-450) k/uL MPV Neutrophils % % Lymphocytes % % Monocytes % % Eosinophils % % Basophils % % Neutrophils # (1.3-7.7) k/uL Lymphocytes # (1.0-4.8) k/uL Monocytes # (0-1.0) k/uL Eosinophils # (0-0.7) k/uL Basophils # (0-0.2) k/uL Sodium 138 (137-145) mmol/L Potassium 4.3 (3.5-5.1) mmol/L Chloride 104 (98-107) mmol/L Carbon Dioxide 25 (22-30) mmol/L Anion Gap 9 mmol/L BUN 8 (7-17) mg/dL Creatinine 0.97 (0.52-1.04) mg/dL Est GFR (CKD-EPI)AfAm 89 (>60 ml/min/1.73 sqM) Est GFR (CKD-EPI)NonAf 77 (>60 ml/min/1.73 sqM) Glucose 101 H (74-99) mg/dL Calcium 9.7 (8.4-10.2) mg/dL Total Bilirubin 0.6 (0.2-1.3) mg/dL AST 27 (14-36) U/L ALT 22 (4-34) U/L Alkaline Phosphatase 56 (38-126) U/L Total Protein 7.9 (6.3-8.2) g/dL Albumin 4.5 (3.5-5.0) g/dL Lipase 56 (23-300) U/L Urine Color Urine Appearance (Clear) Urine pH (5.0-8.0) Ur Specific Blaine (1.001-1.035) Urine Protein (Negative) Urine Glucose (UA) (Negative) Urine Ketones (Negative) Urine Blood (Negative) Urine Nitrite (Negative) Urine Bilirubin (Negative) Urine Urobilinogen (<2.0) mg/dL Ur Leukocyte Esterase (Negative) Urine RBC (0-5) /hpf Urine WBC (0-5) /hpf Ur Squamous Epith Cells (0-4) /hpf Urine Bacteria (None) /hpf Urine HCG, Qual (Not Detectd) Disposition <Mariusz Smith - Last Filed: 07/21/23 12:54> Is patient prescribed a controlled substance at d/c from ED?: No Time of Disposition: 22:00 <Bharath Swanson - Last Filed: 07/21/23 21:55> Clinical Impression: Abdominal pain, Abdominal colic Disposition: HOME SELF-CARE Condition: Good Instructions (If sedation given, give patient instructions): Abdominal Pain (ED) Referrals: None,Stated [Primary Care Provider] - 1-2 days
[2023-07-21 13:20] VITALS: BP 166/110; PULSE 103; RESP 18; TEMP 98.2
[2023-07-21 13:53] LABS: Appearance,Urine Clear (Clear); Bacteria,Urine Rare /hpf; Bilirubin,Urine Negative (Negative); Blood,Urine Large (Negative); Color,Urine Colorless; Glucose,Urine (UA) Negative (Negative); Ketones,Urine Negative (Negative); Leukocyte Esterase,Urine Moderate (Negative); Nitrite,Urine Negative (Negative); PH, Urine 6.5 (5.0-8.0); Protein,Urine Negative (Negative); RBC,Urine 1 /hpf (0-5); Specific Gravity,Urine 1.002 (1.001-1.035); Squamous Epithelial Cell,Urine <1 /hpf (0-4); Urobilinogen,Urine <2.0 mg/dL (<2.0); WBC,Urine 9 /hpf (0-5)
--- NOTE | 2023-07-21 14:05 | US ---
EXAMINATION TYPE: US gallbladder DATE OF EXAM: 07/21/2023 COMPARISON: NONE CLINICAL INDICATION: Female, 32 years old with history of pain; ruq pain TECHNIQUE: Multiple sonographic images of the right upper quadrant are obtained. 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 Liver: Hypoechoic area seen left lobe 2.8 x 2.9 x 3.1 cm Gallbladder: Multiple stones visualized. Evidence for sonographic Portillo's sign: No CBD: wnl Right Kidney: wnl Inferior vena cava: Proximal portion normal. IMPRESSION: 1. Slightly hypoechoic mass within the liver. Additional workup with CT with contrast is recommended . 2. Cholelithiasis.
[2023-07-21 14:51] LABS: ALT 22 U/L (4-34); AST 27 U/L (14-36); African American GFR (CKD) 89 (>60 ml/min/1.73 sqM); Albumin 4.5 g/dL (3.5-5.0); Alkaline Phosphatase 56 U/L (38-126); Anion Gap 9 mmol/L; Blood Urea Nitrogen 8 mg/dL (7-17); Calcium 9.7 mg/dL (8.4-10.2); Carbon Dioxide 25 mmol/L (22-30); Chloride 104 mmol/L (98-107); Glucose 101 mg/dL (74-99); Lipase 56 U/L (23-300); Non-African American GFR(CKD) 77 (>60 ml/min/1.73 sqM); Potassium 4.3 mmol/L (3.5-5.1); Sodium 138 mmol/L (137-145); Total Bilirubin 0.6 mg/dL (0.2-1.3); Total Protein 7.9 g/dL (6.3-8.2)
[2023-07-21 14:52] LABS: Basophils % (A) 0 %; Eosinophils % (A) 0 %; HCT 45.6 % (34.0-46.0); Lymphocytes % (A) 20 %; MCH 29.9 pg (25.0-35.0); MCHC 32.9 g/dL (31.0-37.0); MCV 90.8 fL (80.0-100.0); Mean Platelet Volume 7.5; Monocytes # (A) 0.4 k/uL (0-1.0); Monocytes % (A) 4 %; Neutrophils # (A) 7.6 k/uL (1.3-7.7); Neutrophils % (A) 75 %; Platelet Count 285 k/uL (150-450); RBC 5.02 m/uL (3.80-5.40); RDW 14.1 % (11.5-15.5); WBC 10.2 k/uL (3.8-10.6)
[2023-07-21] MEDS ORDERED: SODIUM CHLORIDE 0.9% 500 ML 500 ML IV STA (19:15)
[2023-07-21] MEDS ORDERED: KETOROLAC 15 MG/ML 1 ML VIAL IVP STA (19:15)
--- NOTE | 2023-07-21 21:34 | CT ---
EXAMINATION TYPE: CT abdomen pelvis w con DATE OF EXAM: 07/21/2023 COMPARISON: None INDICATION: Rt side abdominal pain. DLP: 1994.6 mGycm, Automated exposure control for dose reduction was used. CONTRAST: 100 ml mL of Isovue 300. Study performed without Oral Contrast TECHNIQUE: Axial images were obtained from above the diaphragm to the pubic rami in the axial plane a t 5 mm thick sections. Reconstructed images are reviewed on the computer in the coronal plane. FINDINGS: Limited CT sections are obtained the lung bases. The lung bases are clear. CT ABDOMEN: Liver: Normal Spleen: Normal Pancreas: Normal Adrenal glands: The adrenal glands are normal. Gallbladder: Gallstones are present. Kidneys: No masses are evident. No hydronephrosis is present. No cysts are present. Delayed images were obtained through the kidneys, which remain unremarkable. Aorta: Normal Inferior vena cava: Normal. CT PELVIS: Loops of bowel within the abdomen and pelvis are normal. Studies without oral contrast limiting b owel evaluation. Appendix: Not identified. No dilated tubular structure or inflammatory changes evident. Urinary bladder: Normal. Genitourinary structures: Uterus is normal. Adnexa are normal. Osseous structures: No suspicious lytic or sclerotic lesions. IMPRESSION: 1. Cholelithiasis. 2. Nonvisualization of the appendix. Clinical management of any suspected appendicitis will be requir ed.
== END 2023-07-21 23:00 | disposition home or self-care (01) ==
LOC: EC 12:34
DX: K80.20 Calculus of gallbladder without cholecystitis without obstruction (principal); R10.84 Generalized abdominal pain; F41.9 Anxiety disorder, unspecified; F32.A Depression, unspecified; Z79.899 Other long term (current) drug therapy; Z88.0 Allergy status to penicillin
CPT/HCPCS: 36415; 80053; 83690; 85025; 81001; 81025; 84702; 76705; 74177; 99284; 96365; 96366; 96375; J0696; J1885; Q9967